=== PATIENT | female | born 1995 | race Caucasian/White ===

== ENCOUNTER 2016-07-17 21:16 | Emergency (ER) | payer OTHER ==
[2016-07-17 22:22] LABS: RED BLOOD COUNT 4.97 M/UL (4.00-5.10); WHITE BLOOD COUNT 9.6 K/UL (4.5-11.0)
[2016-07-17 22:36] LABS: BUN/CREATININE RATIO 12 (0-10)
== END 2016-07-17 23:45 | disposition home or self-care (01) ==
LOC: ER1 21:16
PROVIDERS: Physician Assistant
DX: J06.9 Acute upper respiratory infection, unspecified (principal); I10 Essential (primary) hypertension; Z79.899 Other long term (current) drug therapy
CPT/HCPCS: 36415; 71020; 80053; 84703; 85025; 87040; 87081; 87880; 99283; Q0162